=== PATIENT | male | born 1995 | race Caucasian/White ===

== ENCOUNTER 2017-07-15 21:27 | Emergency (ER) | payer OTHER ==
[~2017-07-15] VITALS: Ht 188 cm; Wt 66.8 kg
[~2017-07-15 21:27] MED LIST: GABA100C2 PO; GABA250S PO; LEXA20TA PO
[2017-07-15 21:33] VITALS: BP 129/81; PULSE 62; RESP 20; TEMP 99; O2SAT 98
[2017-07-15] MEDS ORDERED: LIDOCAINE HCL 1% 50 ML VIAL XX ONE (22:00)
[2017-07-15] MEDS ORDERED: SODIUM CHLORIDE 0.9% FLUSH 10 ML FLUSH IVF PRN (22:00)
[2017-07-15] MEDS ORDERED: cefTRIAXone 250 MG VIAL IM ONE (22:00)
[2017-07-15] MEDS ORDERED: AZITHROMYCIN PWD FOR SUSP 1 GM PACKET PO ONE (22:00)
[2017-07-15] MEDS ORDERED: LIDOCAINE HCL 1% PF 2 ML VIAL ONE (22:02)
[2017-07-15 22:08] LABS: BILIRUBIN, URINE NEG (NEG); BLOOD, URINE MOD (NEG); GLUCOSE,URINE NEG (NEG); KETONE, URINE TRACE mg/dL (NEG); NITRITE,URINE NEG (NEG); URINE COLOR YELLOW (YELLW/STRAW); URINE LEUKOCYTE ESTERASE MOD (NEG)
--- NOTE | 2017-07-15 22:11 | PD ---
HPI Chief Complaint: Complaint Time Seen by Provider: 21:58 Travel History International Travel<30 days: No Contact w/Intl Traveler<30days: No Traveled to known affect area: No History of Present Illness HPI 21-year-old male patient with history of unprotected sex a few weeks ago, presents to the ER with several days history of burning on urination and urethral discharge. He denies any fevers or any other issues. He is concerned that he has a sexually transmitted disease. Modifying Factors: None Associated Signs & Symptoms: Burning on urination, urethral discharge Risk Factors: Recent unprotected sex PFSH Past Medical History ADHD: Yes (STIMULANT MEDS IN THE PAST) Anxiety: Yes Depression: Yes Cancer: No Cardiovascular Problems: No Diabetes: No Diminished Hearing: No Headaches: No Psychiatric: Yes (ANXIETY,DEPRESSION) Immunizations Current: Yes Migraines: No (NONE RECENTLY) Seizures: No Thyroid Disease: No Ulcer: No Tetanus Vaccination: > 5 Years Influenza Vaccination: No Past Surgical History Section: Yes (DUE TO PRE ECLAMCIA) Other Surgery: Yes (COMPOUND FX AGE 14 LEFT FOREARM) Social History Alcohol Use: Yes Tobacco Use: No Substance Use: Yes (DAILY MARIJUANA USE) Allergies-Medications (Allergen,Severity, Reaction): Coded Allergies: No Known Allergies (Verified Adverse Reaction, Unknown, 07/15/17) Reported Meds & Prescriptions Reported Meds & Active Scripts Active No Active Prescriptions or Reported Medications Review of Systems Except as stated in HPI: all other systems reviewed are Neg Physical Exam Narrative GENERAL: Well-developed young male patient currently not in acute distress. Awake and oriented 3. SKIN: Focused skin assessment warm/dry. HEAD: Atraumatic. Normocephalic. EYES: Pupils equal and round. No scleral icterus. No injection or drainage. ENT: No nasal bleeding or discharge. Mucous membranes pink and moist. NECK: Trachea midline. No JVD. CARDIOVASCULAR: Regular rate and rhythm. No murmur appreciated. RESPIRATORY: No accessory muscle use. Clear to auscultation. Breath sounds equal bilaterally. GASTROINTESTINAL: Abdomen soft, non-tender, nondistended. Hepatic and splenic margins not palpable. GENITOURINARY: Circumcised. Testes descended bilaterally without evidence of rotation. No lesions or erythema. Small amount of notable urethral discharge. MUSCULOSKELETAL: No obvious deformities. No clubbing. No cyanosis. No edema. NEUROLOGICAL: Awake and alert. No obvious cranial nerve deficits. Motor grossly within normal limits. Normal speech. PSYCHIATRIC: Appropriate mood and affect; insight and judgment normal. Data Data Last Documented VS Vital Signs Date Time Temp Pulse Resp B/P (MAP) Pulse Ox O2 Delivery O2 Flow Rate FiO2 07/15/17 21:33 99.0 62 20 129/81 (97) 98 Orders Orders Urinalysis - C+S If Indicated (07/15/17 21:55) Gc And Chlamydia Pcr (07/15/17 21:55) Azithromycin Powd Pack (Zithromax Powd P (07/15/17 22:00) Ceftriaxone Inj (Rocephin Inj) (07/15/17 22:00) Sodium Chloride 0.9% Flush (Ns Flush) (07/15/17 22:00) Lidocaine 1% Inj (50 Ml) (Xylocaine 1% I (07/15/17 22:00) Lidocaine Pf 1% Inj (Xylocaine-Mpf 1% In (07/15/17 22:02) Urine Culture (07/15/17 22:00) Labs Laboratory Tests Test 07/15/17 22:00 Urine Collection Type CLEAN CATCH Urine Color YELLOW Urine Turbidity CLOUDY Urine pH 6.0 Urine Specific [place] GREATER/EQUAL 1.030 Urine Protein 30 mg/dL Urine Glucose (UA) NEG mg/dL Urine Ketones TRACE mg/dL Urine Occult Blood MOD Urine Nitrite NEG Urine Bilirubin NEG Urine Urobilinogen 0.2 MG/DL Urine Leukocyte Esterase MOD Urine RBC 10-14 /hpf Urine WBC INNUM /hpf Urine WBC Clumps FEW Urine Squamous Epithelial Cells 0-5 /hpf Urine Amorphous Sediment FEW Urine Bacteria FEW /hpf Urine Mucus FEW /lpf Microscopic Urinalysis Comment CULTURE INDICATED MDM Medical Decision Making Medical Screen Exam Complete: Yes Emergency Medical Condition: Yes Medical Record Reviewed: Yes Interpretation(s) Laboratory Tests Test 07/15/17 22:00 Urine Turbidity CLOUDY (CLEAR) Urine Protein 30 mg/dL (NEG-TRACE) Urine Ketones TRACE mg/dL (NEG) Urine Occult Blood MOD (NEG) Urine Leukocyte Esterase MOD (NEG) Urine RBC 10-14 /hpf (0-3) Urine WBC INNUM /hpf (0-5) Urine WBC Clumps FEW (NONE) Urine Bacteria FEW /hpf (NONE) Urine Mucus FEW /lpf (OCC) Differential Diagnosis Dysuria, urethral discharge: UTI versus urethritis Narrative Course UA shows significant UTI which I plan to treat with antibiotics. Considering his history, he is also given ceftriaxone and Zithromax after GC cultures were done. Plan would be to release him at this point, safe sex instructions, follow -up as necessary primary care doctor. Return for any worsening in symptoms as needed. The plan has been discussed with him and he states understanding. Diagnosis Primary Impression: UTI (urinary tract infection) Additional Impression: Concern about STD in male without diagnosis Med/Other Pt SpecificInfo: Prescription(s) given Scripts Nitrofurantoin Monohydrate Macrocrystals (Macrobid) 100 Mg Cap 100 MG PO BID for Infection for 7 Days, #14 CAP 0 Refills Prov: Marge Rivera MD 07/15/17 Disposition: 01 DISCHARGE HOME Condition: Stable Marge Rivera MD Jul 15, 2017 22:11
[2017-07-15 22:17] LABS: MUCUS URINE FEW /lpf (OCC); WBC, URINE INNUM /hpf (0-5); WHITE BLOOD CELL CLUMPS FEW
[2017-07-15 22:18] LABS: AMORPHOUS SEDIMENT, URINE FEW; BACTERIA, URINE FEW /hpf; SQUAMOUS EPITHELIAL CELL URINE 0-5 /hpf (0-5)
[2017-07-15] MEDS ORDERED: MACR100C2 PO (22:22)
== END 2017-07-15 22:32 | disposition home or self-care (01) ==
LOC: PHED 21:27
DX: N39.0 Urinary tract infection, site not specified (principal); A54.00 Gonococcal infection of lower genitourinary tract, unspecified; F90.9 Attention-deficit hyperactivity disorder, unspecified type; F41.9 Anxiety disorder, unspecified; F32.9 Major depressive disorder, single episode, unspecified; F12.90 Cannabis use, unspecified, uncomplicated
CPT/HCPCS: 81001; 87086; 87491; 87591; 96372; 99283; J0696